=== PATIENT | male | born 1960 | race Caucasian/White ===

== ENCOUNTER → 2020-05-29 | Outpatient (CLI) | payer OTHER ==
[~2020-05-29] MED LIST: ALLEGRA ALLERG180 MG PO; AMBIEN10 MG PO; ASPIRIN325 MG PO; CELEBREX200 MG PO; CRESTOR10 MG PO; KEFLEX CAP 500500 MG PO; NEURONTIN 100100 MG PO; NORCO 5-325 TA1 EACH PO; ORPHENADRINE C100 MG PO; PATANASE30.5 GM; PLAVIX 75 MG TA75 MG PO; PREVACID30 MG PO; PSEUDOEPHEDRINE60 MG PO; VITAMIN B12 PO
== END ==
LOC: CT 09:19
DX: C34.90 Malignant neoplasm of unspecified part of unspecified bronchus or lung (principal)
CPT/HCPCS: 71260; 82565; Q9967

== ENCOUNTER → 2020-07-14 | Outpatient (CLI) | payer OTHER | LOC: MRI 07-07 15:00 | DX: C79.51 Secondary malignant neoplasm of bone (principal); R93.7 Abnormal findings on diagnostic imaging of other parts of musculoskeletal system; M51.26 Other intervertebral disc displacement, lumbar region; M47.816 Spondylosis without myelopathy or radiculopathy, lumbar region; M48.061 Spinal stenosis, lumbar region without neurogenic claudication; M47.817 Spondylosis without myelopathy or radiculopathy, lumbosacral region; M51.27 Other intervertebral disc displacement, lumbosacral region; M48.07 Spinal stenosis, lumbosacral region | CPT/HCPCS: 36415; 72157; 72158; 82565; A9577 ==

== ENCOUNTER → 2020-08-14 | Outpatient (CLI) | payer OTHER | LOC: CT 07:06 | DX: C34.90 Malignant neoplasm of unspecified part of unspecified bronchus or lung (principal); R91.1 Solitary pulmonary nodule; M89.8X8 Other specified disorders of bone, other site | CPT/HCPCS: 71260; Q9967 ==

== ENCOUNTER → 2020-09-21 | Outpatient (CLI) | payer OTHER ==
[2020-09-21 08:14] LABS: HEMOGLOBIN 13.4 gm/dl (14.0-17.5); RED BLOOD COUNT 4.55 M/UL (4.20-5.50)
[2020-09-21 08:18] LABS: BUN/CREATININE RATIO 16 (0-10)
== END ==
LOC: LAB 07:17
PROVIDERS: Internal Medicine Hematology & Oncology
DX: C34.90 Malignant neoplasm of unspecified part of unspecified bronchus or lung (principal)
CPT/HCPCS: 36415; 80053; 84439; 84443; 85025

== ENCOUNTER → 2020-11-09 | Outpatient (CLI) | payer OTHER | LOC: CT 11:47 | DX: C34.90 Malignant neoplasm of unspecified part of unspecified bronchus or lung (principal) | CPT/HCPCS: 36415; 71260; 82565; Q9967 ==

== ENCOUNTER → 2021-03-01 | Day surgery (SDC) | payer OTHER ==
[~2021-03-01] MED LIST changes: +EPIPEN 2-P0.3 MG/0.3 INJ; +FLOMAX0.4 MG PO; +KEYTRUDA100 MG/4 M IV; +MAGNESIUM400 M2 PO; +NORFLEX 100 MG100 MG PO; +PHENERGAN 25 MG25 M1 PO; +POTASSIUM99 M1 PO; +VIT E PO; +ZOMETA 4 M4 MG/100 M INJ
[2021-03-01 07:11] LABS: HEMOGLOBIN 14.4 gm/dl (14.0-17.5); RED BLOOD COUNT 4.62 M/UL (4.20-5.50); WHITE BLOOD COUNT 4.8 K/UL (4.5-11.0)
[2021-03-01 07:54] LABS: BUN/CREATININE RATIO 11 (0-10)
== END | disposition home or self-care (01) ==
LOC: OR 06:10
PROVIDERS: Internal Medicine Hematology & Oncology
DX: Z12.11 Encounter for screening for malignant neoplasm of colon (principal); Z12.12 Encounter for screening for malignant neoplasm of rectum; Z86.010 Personal history of colon polyps; Z85.118 Personal history of other malignant neoplasm of bronchus and lung; E78.00 Pure hypercholesterolemia, unspecified; I10 Essential (primary) hypertension; G47.00 Insomnia, unspecified; D50.9 Iron deficiency anemia, unspecified; G47.30 Sleep apnea, unspecified; E53.8 Deficiency of other specified B group vitamins; Z88.1 Allergy status to other antibiotic agents; Z88.5 Allergy status to narcotic agent; Z87.891 Personal history of nicotine dependence; Z20.822 Contact with and (suspected) exposure to COVID-19; Q21.1 Atrial septal defect; K64.4 Residual hemorrhoidal skin tags; N40.0 Benign prostatic hyperplasia without lower urinary tract symptoms
CPT/HCPCS: 36415; 80053; 84439; 84443; 85025; J2704; J7120

== ENCOUNTER → 2021-03-22 | Outpatient (CLI) | payer OTHER ==
[2021-03-22 08:22] LABS: HEMOGLOBIN 14.5 gm/dl (14.0-17.5); RED BLOOD COUNT 4.66 M/UL (4.20-5.50); WHITE BLOOD COUNT 5.7 K/UL (4.5-11.0)
[2021-03-22 08:43] LABS: BUN/CREATININE RATIO 16 (0-10)
== END ==
LOC: LAB 08:05
PROVIDERS: Internal Medicine Hematology & Oncology
DX: C34.90 Malignant neoplasm of unspecified part of unspecified bronchus or lung (principal)
CPT/HCPCS: 36415; 80053; 84439; 84443; 85025

== ENCOUNTER → 2021-04-13 | Outpatient (CLI) | payer OTHER ==
[2021-04-13 07:03] LABS: HEMOGLOBIN 14.4 gm/dl (14.0-17.5); RED BLOOD COUNT 4.67 M/UL (4.20-5.50); WHITE BLOOD COUNT 5.1 K/UL (4.5-11.0)
[2021-04-13 07:42] LABS: BUN/CREATININE RATIO 17 (0-10)
== END ==
LOC: LAB 06:35
PROVIDERS: Internal Medicine Hematology & Oncology
DX: C34.90 Malignant neoplasm of unspecified part of unspecified bronchus or lung (principal)
CPT/HCPCS: 36415; 80053; 84439; 84443; 85025

== ENCOUNTER → 2021-05-04 | Outpatient (CLI) | payer OTHER ==
[2021-05-04 08:56] LABS: HEMOGLOBIN 13.4 gm/dl (14.0-17.5); RED BLOOD COUNT 4.51 M/UL (4.20-5.50)
[2021-05-04 09:16] LABS: BUN/CREATININE RATIO 11 (0-10)
== END ==
LOC: LAB 08:14
PROVIDERS: Internal Medicine Hematology & Oncology
DX: C34.90 Malignant neoplasm of unspecified part of unspecified bronchus or lung (principal); R53.83 Other fatigue
CPT/HCPCS: 36415; 80053; 84439; 84443; 85025

== ENCOUNTER → 2021-05-18 | Outpatient (CLI) | payer OTHER | LOC: CT 13:47 | DX: C34.90 Malignant neoplasm of unspecified part of unspecified bronchus or lung (principal); R91.8 Other nonspecific abnormal finding of lung field | CPT/HCPCS: 71260; Q9967 ==

== ENCOUNTER → 2021-05-25 | Outpatient (CLI) | payer OTHER ==
[2021-05-25 07:19] LABS: HEMOGLOBIN 13.6 gm/dl (14.0-17.5); RED BLOOD COUNT 4.47 M/UL (4.20-5.50); WHITE BLOOD COUNT 5.2 K/UL (4.5-11.0)
[2021-05-25 07:37] LABS: BUN/CREATININE RATIO 14 (0-10)
== END ==
LOC: LAB 06:38
PROVIDERS: Internal Medicine Hematology & Oncology
DX: C34.90 Malignant neoplasm of unspecified part of unspecified bronchus or lung (principal)
CPT/HCPCS: 36415; 80053; 84439; 84443; 85025

== ENCOUNTER → 2021-06-15 | Outpatient (CLI) | payer OTHER ==
[2021-06-15 15:05] LABS: HEMOGLOBIN 13.4 gm/dl (14.0-17.5); RED BLOOD COUNT 4.38 M/UL (4.20-5.50); WHITE BLOOD COUNT 4.4 K/UL (4.5-11.0)
[2021-06-15 15:27] LABS: BUN/CREATININE RATIO 17 (0-10)
== END ==
LOC: LAB 14:27
PROVIDERS: Internal Medicine Hematology & Oncology
DX: C34.90 Malignant neoplasm of unspecified part of unspecified bronchus or lung (principal); Z79.899 Other long term (current) drug therapy
CPT/HCPCS: 36415; 80053; 84439; 84443; 85025

== ENCOUNTER → 2021-07-06 | Outpatient (CLI) | payer OTHER ==
[2021-07-06 09:22] LABS: HEMOGLOBIN 13.2 gm/dl (14.0-17.5); RED BLOOD COUNT 4.38 M/UL (4.20-5.50); WHITE BLOOD COUNT 4.8 K/UL (4.5-11.0)
[2021-07-07 10:15] LABS: A/G RATIO 1.6 (1.2-2.2); ALKALINE PHOSPHATASE, S 57 IU/L (44-121); ALT (SGPT) 16 IU/L (0-44); AST (SGOT) 23 IU/L (0-40); BILIRUBIN, TOTAL <0.2 mg/dL (0.0-1.2); BUN 10 mg/dL (8-27); BUN/CREATININE RATIO 10 (10-24); CALCIUM, SERUM 9.1 mg/dL (8.6-10.2); CARBON DIOXIDE, TOTAL 22 mmol/L (20-29); CHLORIDE, SERUM 105 mmol/L (96-106); CREATININE, SERUM 0.99 mg/dL (0.76-1.27); EGFR IF AFRICN AM 93 (>59); EGFR IF NONAFRICN AM 81 (>59); GLOBULIN, TOTAL 2.7 g/dL (1.5-4.5); GLUCOSE, SERUM 99 mg/dL (65-99); POTASSIUM, SERUM 4.4 mmol/L (3.5-5.2); PROTEIN, TOTAL, SERUM 7.1 g/dL (6.0-8.5); SODIUM, SERUM 140 mmol/L (134-144)
== END ==
LOC: LAB 08:52
PROVIDERS: Internal Medicine Hematology & Oncology
DX: C34.90 Malignant neoplasm of unspecified part of unspecified bronchus or lung (principal); Z79.899 Other long term (current) drug therapy
CPT/HCPCS: 36415; 80053; 84439; 84443; 85025

== ENCOUNTER → 2021-07-27 | Outpatient (CLI) | payer OTHER ==
[2021-07-27 09:25] LABS: HEMOGLOBIN 13.2 gm/dl (14.0-17.5); RED BLOOD COUNT 4.44 M/UL (4.20-5.50); WHITE BLOOD COUNT 4.5 K/UL (4.5-11.0)
[2021-07-27 09:43] LABS: BUN/CREATININE RATIO 18 (0-10)
== END ==
LOC: LAB 08:47
PROVIDERS: Internal Medicine Hematology & Oncology
DX: C34.90 Malignant neoplasm of unspecified part of unspecified bronchus or lung (principal)
CPT/HCPCS: 36415; 80053; 84439; 84443; 85025

== ENCOUNTER → 2021-08-10 | Outpatient (CLI) | payer OTHER | LOC: EMI 07-30 09:00 | DX: C79.51 Secondary malignant neoplasm of bone (principal); C80.1 Malignant (primary) neoplasm, unspecified; M47.814 Spondylosis without myelopathy or radiculopathy, thoracic region; M51.36 Other intervertebral disc degeneration, lumbar region | CPT/HCPCS: 72157; 72158; A9577 ==

== ENCOUNTER → 2021-08-20 | Outpatient (CLI) | payer OTHER ==
[2021-08-20 07:57] LABS: HEMOGLOBIN 13.6 gm/dl (14.0-17.5); RED BLOOD COUNT 4.45 M/UL (4.20-5.50); WHITE BLOOD COUNT 3.9 K/UL (4.5-11.0)
[2021-08-20 08:32] LABS: BUN/CREATININE RATIO 18 (0-10)
== END ==
LOC: CT 07:23
PROVIDERS: Internal Medicine Hematology & Oncology
DX: C34.90 Malignant neoplasm of unspecified part of unspecified bronchus or lung (principal); R91.8 Other nonspecific abnormal finding of lung field; Z79.899 Other long term (current) drug therapy
CPT/HCPCS: 36415; 71260; 80053; 84439; 84443; 85025; Q9967

== ENCOUNTER → 2021-09-14 | Outpatient (CLI) | payer OTHER ==
[2021-09-14 06:54] LABS: HEMOGLOBIN 13.3 gm/dl (14.0-17.5); RED BLOOD COUNT 4.31 M/UL (4.20-5.50); WHITE BLOOD COUNT 5.4 K/UL (4.5-11.0)
[2021-09-14 07:21] LABS: BUN/CREATININE RATIO 23 (0-10)
== END ==
LOC: LAB 06:39
PROVIDERS: Internal Medicine Hematology & Oncology
DX: C34.90 Malignant neoplasm of unspecified part of unspecified bronchus or lung (principal); Z79.899 Other long term (current) drug therapy
CPT/HCPCS: 36415; 80053; 84439; 84443; 85025

== ENCOUNTER → 2021-10-05 | Outpatient (CLI) | payer OTHER ==
[2021-10-05 07:06] LABS: HEMOGLOBIN 13.5 gm/dl (14.0-17.5); RED BLOOD COUNT 4.36 M/UL (4.20-5.50); WHITE BLOOD COUNT 4.7 K/UL (4.5-11.0)
[2021-10-05 07:28] LABS: BUN/CREATININE RATIO 20 (0-10)
== END ==
LOC: LAB 06:42
PROVIDERS: Internal Medicine Hematology & Oncology
DX: C34.90 Malignant neoplasm of unspecified part of unspecified bronchus or lung (principal); Z79.899 Other long term (current) drug therapy
CPT/HCPCS: 36415; 80053; 84439; 84443; 85025

== ENCOUNTER → 2021-10-26 | Outpatient (CLI) | payer OTHER ==
[2021-10-26 07:48] LABS: RED BLOOD COUNT 4.38 M/UL (4.20-5.50); WHITE BLOOD COUNT 5.2 K/UL (4.5-11.0)
[2021-10-26 08:07] LABS: BUN/CREATININE RATIO 20 (0-10)
== END ==
LOC: LAB 06:53
PROVIDERS: Internal Medicine Hematology & Oncology
DX: C34.90 Malignant neoplasm of unspecified part of unspecified bronchus or lung (principal); Z79.899 Other long term (current) drug therapy
CPT/HCPCS: 36415; 80053; 84439; 84443; 85025

== ENCOUNTER → 2021-11-16 | Outpatient (CLI) | payer OTHER ==
[2021-11-16 07:19] LABS: HEMOGLOBIN 13.4 gm/dl (14.0-17.5); RED BLOOD COUNT 4.49 M/UL (4.20-5.50); WHITE BLOOD COUNT 5.4 K/UL (4.5-11.0)
[2021-11-16 07:39] LABS: BUN/CREATININE RATIO 16 (0-10)
== END ==
LOC: LAB 06:44
PROVIDERS: Internal Medicine Hematology & Oncology
DX: C34.90 Malignant neoplasm of unspecified part of unspecified bronchus or lung (principal); Z79.899 Other long term (current) drug therapy
CPT/HCPCS: 36415; 80053; 84439; 84443; 85025

== ENCOUNTER → 2021-12-06 | Outpatient (CLI) | payer OTHER ==
[2021-12-06 09:34] LABS: HEMOGLOBIN 14.2 gm/dl (14.0-17.5); RED BLOOD COUNT 4.54 M/UL (4.20-5.50); WHITE BLOOD COUNT 4.8 K/UL (4.5-11.0)
[2021-12-06 10:00] LABS: BUN/CREATININE RATIO 12 (0-10)
== END ==
LOC: CT 07:19
PROVIDERS: Internal Medicine Hematology & Oncology
DX: C34.90 Malignant neoplasm of unspecified part of unspecified bronchus or lung (principal); Z79.899 Other long term (current) drug therapy; R91.8 Other nonspecific abnormal finding of lung field; K76.9 Liver disease, unspecified; M48.56XA Collapsed vertebra, not elsewhere classified, lumbar region, initial encounter for fracture; R59.0 Localized enlarged lymph nodes
CPT/HCPCS: 36415; 71260; 80053; 84439; 84443; 85025; Q9967

== ENCOUNTER → 2021-12-27 | Outpatient (CLI) | payer OTHER ==
[2021-12-27 11:13] LABS: HEMOGLOBIN 13.8 gm/dl (14.0-17.5); RED BLOOD COUNT 4.52 M/UL (4.20-5.50); WHITE BLOOD COUNT 4.7 K/UL (4.5-11.0)
[2021-12-27 11:39] LABS: BUN/CREATININE RATIO 16 (0-10)
== END ==
LOC: LAB 10:28
PROVIDERS: Internal Medicine Hematology & Oncology
DX: C34.90 Malignant neoplasm of unspecified part of unspecified bronchus or lung (principal); Z79.899 Other long term (current) drug therapy
CPT/HCPCS: 36415; 80053; 84439; 84443; 85025

== ENCOUNTER → 2022-01-17 | Outpatient (CLI) | payer OTHER ==
[2022-01-17 08:04] LABS: HEMOGLOBIN 13.5 gm/dl (14.0-17.5); RED BLOOD COUNT 4.42 M/UL (4.20-5.50); WHITE BLOOD COUNT 4.9 K/UL (4.5-11.0)
[2022-01-17 08:27] LABS: BUN/CREATININE RATIO 14 (0-10)
== END ==
LOC: LAB 07:20
PROVIDERS: Internal Medicine Hematology & Oncology
DX: C34.90 Malignant neoplasm of unspecified part of unspecified bronchus or lung (principal); Z79.899 Other long term (current) drug therapy
CPT/HCPCS: 36415; 80053; 84439; 84443; 85025

== ENCOUNTER → 2022-02-07 | Outpatient (CLI) | payer OTHER ==
[2022-02-07 14:59] LABS: HEMOGLOBIN 13.4 gm/dl (14.0-17.5); RED BLOOD COUNT 4.41 M/UL (4.20-5.50); WHITE BLOOD COUNT 4.7 K/UL (4.5-11.0)
[2022-02-07 15:32] LABS: BUN/CREATININE RATIO 13 (0-10)
== END ==
LOC: LAB 14:35
PROVIDERS: Internal Medicine Hematology & Oncology
DX: C34.90 Malignant neoplasm of unspecified part of unspecified bronchus or lung (principal); Z79.899 Other long term (current) drug therapy
CPT/HCPCS: 36415; 80053; 84439; 84443; 85025